=== PATIENT | male | born 1950 | race Caucasian/White ===

== ENCOUNTER 2018-12-10 07:51 | Day surgery (SDC) | payer MEDICARE, BC ==
[~2018-12-10 07:51] MED LIST: Sodium Chloride 0.9% 10 ML Syringe FLUSH PRN
[2018-12-10] MEDS ORDERED: Lidocaine 1% 30 ML SDV INJECT ONE ×5 (07:52→12:21)
[2018-12-10] MEDS ORDERED: Ondansetron 4 MG/2 ML SDV IV ONE (07:52)
[2018-12-10] MEDS ORDERED: fentaNYL 100 MCG/2 ML SDV IV ONE (07:52)
[2018-12-10] MEDS ORDERED: Midazolam 1 MG/ML 2 ML SDV IV ONE (07:52)
[2018-12-10] MEDS ORDERED: Bupivacaine 0.5% 30 ML SDV INJECT ONE ×5 (07:52→12:21)
[2018-12-10] MEDS ORDERED: Lactated Ringers 1,000 ML IV SCH (08:00)
[2018-12-10] MEDS ORDERED: ceFAZolin 1 GM in Premix Bag 1 BAG IV ONE (08:00)
[2018-12-10] MEDS: Sodium Chloride 0.9% 10 ML Syringe FLUSH PRN ×2 (08:13→08:22)
[2018-12-10] MEDS ORDERED: ceFAZolin 2 GM in Premix Bag 1 BAG IV SCH (09:30)
[2018-12-10] MEDS ORDERED: Lidocaine 1% 30 ML SDV ONE (10:37)
[2018-12-10] MEDS ORDERED: Bupivacaine 0.5% 30 ML SDV ONE (10:37)
--- NOTE | 2018-12-10 11:03 | EKG ---
12/10/2018 - [facility] - EKG shows sinus rhythm, leftward axis deviation. No ST elevation or depression. No T-wave inversions. CA interval of 181. QTc of 435. [facility] /[id number]
--- NOTE | 2018-12-10 12:53 | PCM.OPNOTE ---
- General Post-Op/Procedure Note Date of Surgery/Procedure: 12/10/18 Operative Procedure(s): Left foot open plantar fascia release, great toe ingrown nail permanent matrixectomy medial border Pre Op Diagnosis: Left foot plantar fasciitis, ingrown toenail Post-Op Diagnosis: june Anesthesia Technique: Local, MAC Primary Surgeon: Adriana Cantu Anesthesia Provider: Georges Weiner EBL in mLs: 5 Complications: none Condition: Good Free Text/Narrative:: Intake & Output 12/09/18 12/10/18 12/10/18 22:59 06:59 14:59 Intake Total 50 Balance 50 Pt tolerated procedure well and was transported to recovery with vascular status intact to [facility]. Well padded compression dressing applied with cam boot not to be removed with foot in 90 degrees.
[2018-12-10] MEDS ORDERED: Acetaminophen/oxyCODONE 325-5 MG Tab PO PRN (13:00)
[2018-12-10 13:44] VITALS: BP 126/80; PULSE 68
--- NOTE | 2018-12-11 12:16 | OR ---
DATE: 12/10/2018 PREOPERATIVE DIAGNOSIS: 1. Left foot chronic plantar fasciitis. 2. Left foot great toe ingrown toenail, medial border. POSTOPERATIVE DIAGNOSIS: 1. Left foot chronic plantar fasciitis. 2. Left foot great toe ingrown toenail, medial border. PROCEDURE PERFORMED: 1. Left foot open plantar fasciectomy with bone spur excision. 2. Left foot great toe ingrown toenail permanent matrixectomy medial border. ANESTHESIA: Local MAC with preoperative local block of 10 mL 1:1 mixture of 1% lidocaine plain and 0.5% Marcaine plain. TOURNIQUET TIME: 58 minutes, pneumatic ankle tourniquet. ESTIMATED BLOOD LOSS: Minimal. SPECIMEN: None. COMPLICATIONS: None. INDICATIONS: Alistair is a 68-year-old male who presents with chronic left heel pain. This has been going on for over 5 years now and progressively worsening. I have seen him in the past and we tried shoe inserts, injections, stretching and activity modifications with no relief. He also has problems with ingrown toenail, he has had ingrown toenail procedures in the past and would like this removed today during the surgery. His heel pain is worse when he is weightbearing or standing after rest. He did have Achilles problems on that same foot that got fixed in [place] and that has resolved. X-rays of the left foot reveal a cavus foot structure with no signs of fracture, there is a plantar heel spur present. The patient voiced good understanding of the proposed procedure and possible complications, elects to have surgery at this time. DESCRIPTION OF PROCEDURE: The patient was taken to the operating room, lying in supine position. After adequate anesthesia induction as described above, the left foot was prepped and draped in usual sterile fashion. A pneumatic ankle tourniquet was inflated to 225 mmHg. Attention was then directed to the plantar left foot at the distal instep. A transverse skin incision was made in this area to gain access to the plantar fascia band. Sharp and blunt dissection were performed down to the level of the plantar fascia band. There was noted to be severely thickened and tightened in this area. An approximately 1 cm2 section of the plantar fascia band was removed and the plantar fascial band was released. The area was inspected, no further tightness was noted in this area. There was a bursa in this area as well that was incised and removed. The attention was directed to the spur that was palpable in this area. A rongeur and bone rasp were used to remove the spur. Fluoroscopy was used to verify the spur was resected. The area was then irrigated with copious amounts of sterile saline. Deep closure was completed with 3-0 Vicryl and skin closure was completed with 4-0 nylon. Attention was directed to the left great toe where a [place] elevator was used to free the medial great toenail. [place] anvil was used to cut the nail and a [place] blade was used to cut the nail root. The medial nail and nail root was removed and a curette was used to make sure all nail root was removed. Phenol was then applied 3 applications x30 seconds to the nail matrix to kill the nail root. The area was then irrigated with copious amounts of sterile saline. Bacitracin gauze and [place] dressing was applied to the toe. Xeroform, fluffs, Webril, and a compression dressing was applied to the foot. He was placed into a Cam boot at 90 degrees and should not take that off. The patient tolerated the procedure well and was transported to recovery with vital signs stable and vascular status intact as noted by immediate hyperemia to all digits upon deflation of the ankle tourniquet. He was then discharged home once he met hospital discharge requirements. Order placed to [facility] for crutches to be NWB status post foot surgery to left foot. [facility] /[id number] CARLOS ENRIQUE
== END 2018-12-10 13:50 | disposition home or self-care (01) ==
LOC: DL.SDS 07:51
PROVIDERS: ATTEND Podiatrist
DX: M72.2 Plantar fascial fibromatosis (principal); L60.0 Ingrowing nail; I12.9 Hypertensive chronic kidney disease with stage 1 through stage 4 chronic kidney disease, or unspecified chronic kidney disease; N18.3 Chronic kidney disease, stage 3 (moderate); G47.33 Obstructive sleep apnea (adult) (pediatric); E03.9 Hypothyroidism, unspecified; G25.81 Restless legs syndrome; E78.5 Hyperlipidemia, unspecified; Z87.891 Personal history of nicotine dependence; Z79.899 Other long term (current) drug therapy; Z79.890 Hormone replacement therapy; Z99.89 Dependence on other enabling machines and devices
CPT/HCPCS: 01480; 11750; 28060; 93005; J0690; J2001; J2250; J2405; J3010; J3490; J7120

== ENCOUNTER 2019-03-09 21:11 | Emergency (ER) | payer MEDICARE, BC ==
[2019-03-09 21:19] VITALS: BP 97/62
--- NOTE | 2019-03-09 21:29 | EDM.PDOC ---
ED HPI GENERAL MEDICAL PROBLEM - General Chief Complaint: Lower Extremity Injury/Pain Stated Complaint: LEFT ANKLE INJURY Time Seen by Provider: 03/09/19 21:15 Source of Information: Reports: Patient History Limitations: Reports: No Limitations - History of Present Illness INITIAL COMMENTS - FREE TEXT/NARRATIVE: This 68 yo male patient reports to the ED due to left medial ankle pain. The patient reports he passed out at about 1800 this evening. After he came to, he reports feeling a sharp pain in his left medial ankle. The patient reports he has had numerous previous episodes of near syncope, but he normally can hold onto something and not fall. The patient reports he did not hit his head during the incident. The patient reports he is on blood pressure medications which has given him the lightheadedness. Onset: Today Duration: Constant Location: Reports: Lower Extremity, Left, Other Quality: Reports: Ache Severity: Moderate Improves with: Reports: None Worsens with: Reports: None Context: Reports: Other Associated Symptoms: Reports: No Other Symptoms Left Ankle Pain Score (Numeric/FACES): 0 - Related Data Allergies Allergy/AdvReac Type Severity Reaction Status Date / Time hydrochlorothiazide Allergy unknown Verified 03/09/19 21:20 Home Meds: Home Meds Acetaminophen [Tylenol] 325 mg PO .PRN PRN 04/13/16 [History] DULoxetine [Cymbalta] 60 mg PO DAILY 04/13/16 [History] Lisinopril [Prinivil] 40 mg PO BEDTIME 04/13/16 [History] NIFEdipine [Procardia XL] 30 mg PO BEDTIME 04/13/16 [History] Omeprazole 20 mg PO DAILY 04/13/16 [History] Simvastatin 40 mg PO BEDTIME 04/13/16 [History] Zolpidem Tartrate [Ambien] 10 mg PO BEDTIME 04/13/16 [History] rOPINIRole HCl [Ropinirole ER] 4 mg PO BID 04/13/16 [History] amLODIPine Besylate [Amlodipine Besylate] 5 mg PO BEDTIME 11/19/18 [History] traMADol [Ultram] 50 mg PO .PRN PRN 11/19/18 [History] Fenofibrate 160 mg PO BEDTIME 12/07/18 [History] Labetalol HCl [Labetalol] 200 mg PO BEDTIME 12/07/18 [History] Levothyroxine [Synthroid] 50 mcg PO ACBREAKFAST 12/07/18 [History] Past Medical History HEENT History: Reports: Impaired Vision Other HEENT History: LOWER PARTIAL. UPPER PERMANENTLY FIXED Cardiovascular History: Reports: Aneurysm, High Cholesterol, Hypertension, Other (See Below) Other Cardiovascular History: Abdominal Aortic Aneurysm, non repaired Respiratory History: Reports: Sleep Apnea Gastrointestinal History: Reports: GERD, Other (See Below) Other Gastrointestinal History: fatty liver Genitourinary History: Reports: Renal Disease, Other (See Below) Other Genitourinary History: kidney problems when septic at one time. Stage III chronic kidney disease Musculoskeletal History: Reports: Arthritis, Fibromyalgia, Other (See Below) Other Musculoskeletal History: Hx of septic arthritis. Knee pain, arthritis of knee, degenerative. Infected prosthetic knee Neurological History: Reports: Other (See Below) Other Neuro History: restless leg syndrome. neuropathic pain Psychiatric History: Reports: Depression Endocrine/Metabolic History: Reports: Hypothyroidism Hematologic History: Reports: Anemia Immunologic History: Reports: None Oncologic (Cancer) History: Reports: None Dermatologic History: Reports: Psoriasis, Other (See Below) Other Dermatologic History: skin lesion excision - Infectious Disease History Infectious Disease History: Reports: MRSA - Past Surgical History HEENT Surgical History: Reports: Other (See Below) Other HEENT Surgeries/Procedures: Nose surgery Cardiovascular Surgical History: Reports: None GI Surgical History: Reports: Colonoscopy, Hernia Repair/Other Male Surgical History: Reports: TURP-Transurethral Resection of Prostate Musculoskeletal Surgical History: Reports: Knee Replacement, Other (See Below) Other Musculoskeletal Surgeries/Procedures:: Foot heel achilles tendon repair . Knee surgery. Joint replacement Social & Family History - Family History Family Medical History: Noncontributory - Tobacco Use Smoking Status *Q: Never Smoker - Caffeine Use Caffeine Use: Reports: Coffee Caffeine Use Comment: 16. oz daily - Recreational Drug Use Recreational Drug Use: No - Living Situation & Occupation Living situation: Reports: , with Family Review of Systems - Review of Systems Review Of Systems: ROS reveals no pertinent complaints other than HPI. ED EXAM, GENERAL - Physical Exam Exam: See Below Exam Limited By: No Limitations General Appearance: Alert, WD/WN, No Apparent Distress Eye Exam: Bilateral Eye: EOMI, Normal Inspection, PERRL Ears: Normal External Exam, Normal Canal, Hearing Grossly Normal, Normal TMs Nose: Normal Inspection, Normal Mucosa, No Blood Throat/Mouth: Normal Inspection, Normal Lips, Normal Teeth, Normal Gums, Normal Oropharynx, Normal Voice, No Airway Compromise Head: Atraumatic, Normocephalic Neck: Normal Inspection, Supple, Non-Tender, Full Range of Motion Respiratory/Chest: No Respiratory Distress, Lungs Clear, Normal Breath Sounds, No Accessory Muscle Use, Chest Non-Tender Cardiovascular: Normal Peripheral Pulses, Regular Rate, Rhythm, No Edema, No Gallop, No JVD, No Murmur, No Rub GI/Abdominal: Normal Bowel Sounds, Soft, Non-Tender, No Organomegaly, No Distention, No Abnormal Bruit, No Mass (Male) Exam: Deferred Rectal (Males) Exam: Deferred Back Exam: Normal Inspection, Full Range of Motion, NT Extremities: Leg Pain (left medial ankle pain) Neurological: Alert, Oriented, CN II-XII Intact, Normal Cognition, Normal Gait, Normal Reflexes, No Motor/Sensory Deficits Psychiatric: Normal Affect, Normal Mood Skin Exam: Warm, Dry, Intact, Normal Color, No Rash Lymphatic: No Adenopathy Course - Vital Signs Last Recorded V/S: Last Vital Signs Temp 36.1 C 03/09/19 21:14 Pulse 83 03/09/19 21:14 Resp 18 03/09/19 21:14 BP 97/62 03/09/19 21:14 Pulse Ox 97 03/09/19 21:14 - Orders/Labs/Meds Orders: Active Orders 24 hr Category Date Time Status EKG Documentation Completion [RC] URGENT Care 03/09/19 21:22 Ordered Ankle Min 3V Lt [CR] Urgent Exams 03/09/19 21:22 Ordered Chest 1V Frontal [CR] Urgent Exams 03/09/19 21:22 Ordered DME for Discharge [COMM] Urgent Oth 03/09/19 22:16 Ordered Labs: Laboratory Tests 03/09/19 03/09/19 Range/Units 21:24 21:24 WBC 7.4 (5.0-10.0) 10^3/uL RBC 4.44 L (4.6-6.2) 10^6/uL Hgb 13.9 L (14.0-18.0) g/dL Hct 42.0 (40.0-54.0) % MCV 94.6 (80-100) fL MCH 31.3 (27.0-34.0) pg MCHC 33.1 (33.0-35.0) g/dL Plt Count 314 (150-450) 10^3/uL Neut % (Auto) 60.8 (42.2-75.2) % Lymph % (Auto) 25.4 (20.5-50.1) % [place] % (Auto) 10.8 H (2-8) % Eos % (Auto) 2.3 (1.0-3.0) % Baso % (Auto) 0.7 (0.0-1.0) % Sodium 139 (135-145) mmol/L Potassium 4.7 (3.6-5.0) mmol/L Chloride 104 (101-111) mmol/L Carbon Dioxide 22.0 (21.0-31.0) mmol/L Anion Gap 17.7 BUN 67 H (7-18) mg/dL Creatinine 3.7 H D (0.6-1.3) mg/dL Est Cr Clr Drug Dosing 19.79 mL/min Estimated GFR (MDRD) 16 BUN/Creatinine Ratio 18.10 Glucose 122 H (74-105) mg/dL Calcium 8.7 (8.4-10.2) mg/dl Total Bilirubin 0.8 (0.2-1.0) mg/dL AST 21 (10-42) IU/L ALT 20 (10-60) IU/L Alkaline Phosphatase 43 (42-121) IU/L Troponin I < 0.02 (0.00-0.02) ng/ml Total Protein 6.7 (6.7-8.2) g/dl Albumin 4.2 (3.2-5.5) g/dl Globulin 2.5 Albumin/Globulin Ratio 1.68 Departure - Departure Time of Disposition: 22:17 Disposition: Home, Self-Care 01 Condition: Fair Clinical Impression: Fractured medial malleolus Qualifiers: Encounter type: initial encounter Fracture type: closed Fracture alignment: displaced Laterality: left Qualified Code(s): S82.52XA - Displaced fracture of medial malleolus of left tibia, initial encounter for closed fracture - Discharge Information *PRESCRIPTION DRUG MONITORING PROGRAM REVIEWED*: Not Applicable *COPY OF PRESCRIPTION DRUG MONITORING REPORT IN PATIENT RANDELL: Not Applicable Instructions: Cast or Splint Care, Adult, [id number], Tibial Fracture, Adult , [id number] Forms: ED Department Discharge Care Plan Goals: The patient was advised of the examination, lab, x-ray and EKG results during the visit. The patient was placed in a walking boot to stabilize his ankle. The patient was encouraged to rest, ice and elevate the left ankle. The patient should follow-up with his primary care facility for continued evaluation and further management. The patient was also encouraged to address his elevated kidney function lab results with his primary care facility for continued evaluation. If the patient has any additional symptoms or concerns, the patient should either return to the emergency department or visit his primary care facility. - My Orders Last 24 Hours: My Active Orders 03/09/19 21:22 EKG Documentation Completion [RC] URGENT Ankle Min 3V Lt [CR] Urgent Chest 1V Frontal [CR] Urgent 03/09/19 22:16 DME for Discharge [COMM] Urgent - Assessment/Plan Last 24 Hours: My Active Orders 03/09/19 21:22 EKG Documentation Completion [RC] URGENT Ankle Min 3V Lt [CR] Urgent Chest 1V Frontal [CR] Urgent 03/09/19 22:16 DME for Discharge [COMM] Urgent
[2019-03-09 21:48] LABS: ANION GAP 17.7; CHLORIDE,CL 104 mmol/L (101-111); SODIUM,NA 139 mmol/L (135-145)
== END 2019-03-09 22:30 | disposition home or self-care (01) ==
LOC: DL.ED 21:11
DX: S82.52XA Displaced fracture of medial malleolus of left tibia, initial encounter for closed fracture (principal); I10 Essential (primary) hypertension; E78.00 Pure hypercholesterolemia, unspecified; F32.9 Major depressive disorder, single episode, unspecified; E03.9 Hypothyroidism, unspecified; Z79.899 Other long term (current) drug therapy; Z88.8 Allergy status to other drugs, medicaments and biological substances; W19.XXXA Unspecified fall, initial encounter
CPT/HCPCS: 36415; 71045; 73610-LT; 80053; 84484; 85025; 93005; 99284-25

== ENCOUNTER 2019-05-13 09:14 | Emergency (ER) | payer MEDICARE, BC ==
[2019-05-13] MEDS ORDERED: Sodium Chloride 0.9% 10 ML Syringe FLUSH PRN (09:19)
--- NOTE | 2019-05-13 09:19 | EDM.PDOC ---
ED HPI GENERAL MEDICAL PROBLEM - General Chief Complaint: Chest Pain Stated Complaint: CHEST PAIN Time Seen by Provider: 05/13/19 09:19 Source of Information: Reports: Patient, Old Records, RN, RN Notes Reviewed History Limitations: Reports: No Limitations - History of Present Illness INITIAL COMMENTS - FREE TEXT/NARRATIVE: Pt presents to ER from home by POV with c/o sudden onset of chest pain/pressure at approx. 0830HRS this morning while at rest. Pt states he felt well prior to onset of the chest pain, and felt completely well yesterday. Pt reports mid- chest pressure with nausea. Denies shortness of breath, radiating pain, edema, lightheadedness, syncope, palpitations, or orthopnea. Pt states he checked his BP after the pain began and it was higher than usual (he doesn't remember the exact numbers) so he decided he had better come to the ER to see if he was having a heart attack. Pt does report that he has been having problems with acid reflux recently and he wondered if is chest symptoms were caused by acid, but because of the higher than normal BP he thought he should be checked out. Onset: Today, Sudden Onset Date: 05/13/19 Onset Time: 08:30 Duration: Constant Location: Reports: Chest Quality: Reports: Pressure Severity: Moderate Improves with: Reports: None Worsens with: Reports: None - Related Data Allergies Allergy/AdvReac Type Severity Reaction Status Date / Time hydrochlorothiazide Allergy unknown Verified 03/09/19 21:20 Home Meds: Home Meds Acetaminophen [Tylenol] 325 mg PO .PRN PRN 04/13/16 [History] DULoxetine [Cymbalta] 60 mg PO DAILY 04/13/16 [History] Lisinopril [Prinivil] 40 mg PO BEDTIME 04/13/16 [History] NIFEdipine [Procardia XL] 30 mg PO BEDTIME 04/13/16 [History] Omeprazole 20 mg PO DAILY 04/13/16 [History] Simvastatin 40 mg PO BEDTIME 04/13/16 [History] Zolpidem Tartrate [Ambien] 10 mg PO BEDTIME 04/13/16 [History] rOPINIRole HCl [Ropinirole ER] 4 mg PO BID 04/13/16 [History] amLODIPine Besylate [Amlodipine Besylate] 5 mg PO BEDTIME 11/19/18 [History] traMADol [Ultram] 25 mg PO .PRN PRN 11/19/18 [History] Fenofibrate 160 mg PO BEDTIME 12/07/18 [History] Labetalol HCl [Labetalol] 200 mg PO BEDTIME 12/07/18 [History] Levothyroxine [Synthroid] 50 mcg PO ACBREAKFAST 12/07/18 [History] Past Medical History HEENT History: Reports: Impaired Vision Other HEENT History: LOWER PARTIAL. UPPER PERMANENTLY FIXED Cardiovascular History: Reports: Aneurysm, High Cholesterol, Hypertension, Other (See Below) Other Cardiovascular History: Abdominal Aortic Aneurysm, non repaired Respiratory History: Reports: Sleep Apnea Gastrointestinal History: Reports: GERD, Other (See Below) Other Gastrointestinal History: fatty liver Genitourinary History: Reports: Renal Disease, Other (See Below) Other Genitourinary History: kidney problems when septic at one time. Stage III chronic kidney disease Musculoskeletal History: Reports: Arthritis, Fibromyalgia, Other (See Below) Other Musculoskeletal History: Hx of septic arthritis. Knee pain, arthritis of knee, degenerative. Infected prosthetic knee Neurological History: Reports: Other (See Below) Other Neuro History: restless leg syndrome. neuropathic pain Psychiatric History: Reports: Depression Endocrine/Metabolic History: Reports: Hypothyroidism Hematologic History: Reports: Anemia Immunologic History: Reports: None Oncologic (Cancer) History: Reports: None Dermatologic History: Reports: Psoriasis, Other (See Below) Other Dermatologic History: skin lesion excision - Infectious Disease History Infectious Disease History: Reports: MRSA - Past Surgical History HEENT Surgical History: Reports: Other (See Below) Other HEENT Surgeries/Procedures: Nose surgery Cardiovascular Surgical History: Reports: None GI Surgical History: Reports: Colonoscopy, Hernia Repair/Other Male Surgical History: Reports: TURP-Transurethral Resection of Prostate Musculoskeletal Surgical History: Reports: Knee Replacement, Other (See Below) Other Musculoskeletal Surgeries/Procedures:: Foot heel achilles tendon repair . Knee surgery. Joint replacement Social & Family History - Family History Family Medical History: Noncontributory - Caffeine Use Caffeine Use: Reports: Coffee Caffeine Use Comment: 16. oz daily - Living Situation & Occupation Living situation: Reports: , with Family Occupation: Retired ED ROS GENERAL - Review of Systems Review Of Systems: ROS reveals no pertinent complaints other than HPI. ED EXAM, GENERAL - Physical Exam Exam: See Below Exam Limited By: No Limitations General Appearance: Alert, WD/WN, No Apparent Distress Eye Exam: Bilateral Eye: Normal Inspection Nose: Normal Inspection, No Blood Throat/Mouth: Normal Inspection, Normal Lips, Normal Voice, No Airway Compromise Head: Atraumatic, Normocephalic Neck: Normal Inspection, Supple, Non-Tender, Full Range of Motion Respiratory/Chest: No Respiratory Distress, Lungs Clear, Normal Breath Sounds, No Accessory Muscle Use, Chest Non-Tender Cardiovascular: Normal Peripheral Pulses, Regular Rate, Rhythm, No Edema, No Gallop, No JVD, No Murmur, No Rub GI/Abdominal: Normal Bowel Sounds, Soft, Non-Tender, No Distention, No Abnormal Bruit, No Mass. No: Guarding, Rigid, Rebound Back Exam: Normal Inspection Extremities: Normal Inspection, Normal Range of Motion, Non-Tender, Normal Capillary Refill, No Pedal Edema Neurological: Alert, Oriented, CN II-XII Intact, Normal Cognition, Normal Gait, No Motor/Sensory Deficits Psychiatric: Normal Affect, Normal Mood Skin Exam: Warm, Dry, Intact, Normal Color, No Rash EKG INTERPRETATION EKG Date: 05/13/19 Time: 09:22 Rhythm: NSR Rate (Beats/Min): [address] [place]: Normal P-Wave: Present QRS: Normal ST-T: Normal QT: Normal Comparison: NA - No Prior EKG EKG Interpretation Comments: No acute ischemic changes. No changes compared to EKG dated 03/09/19. Course - Vital Signs Last Recorded V/S: Last Vital Signs Temp 97.8 F 05/13/19 09:18 Pulse 85 05/13/19 09:18 Resp 18 05/13/19 09:18 BP 177/88 H 05/13/19 09:18 Pulse Ox 97 05/13/19 09:18 - Orders/Labs/Meds Orders: Active Orders 24 hr Category Date Time Status EKG 12 Lead [EKG Documentation Completion] [RC] STAT Care 05/13/19 09:19 Active Peripheral IV Care [RC] . DIRECTED Care 05/13/19 09:20 Active Chest 1V Frontal [CR] Stat Exams 05/13/19 09:20 Taken Nitroglycerin [Nitrostat] Med 05/13/19 09:22 Active 0.4 mg SL Q5M PRN Sodium Chloride 0.9% [Saline Flush] Med 05/13/19 09:19 Active 10 ml FLUSH ASDIRECTED PRN Peripheral IV Insertion Adult [OM.PC] Stat Oth 05/13/19 09:19 Ordered Medication Orders Nitroglycerin (Nitrostat) 0.4 mg SL Q5M PRN PRN Reason: Chest Pain Sodium Chloride (Saline Flush) 10 ml FLUSH ASDIRECTED PRN PRN Reason: Keep Vein Open Last Admin: 05/13/19 09:41 Dose: 10 ml Labs: Laboratory Tests 05/13/19 05/13/19 05/13/19 Range/Units 09:20 09:20 09:20 WBC 6.1 (5.0-10.0) 10^3/uL RBC 4.87 (4.6-6.2) 10^6/uL Hgb 15.1 (14.0-18.0) g/dL Hct 45.0 (40.0-54.0) % MCV 92.4 (80-100) fL MCH 31.0 (27.0-34.0) pg MCHC 33.6 (33.0-35.0) g/dL Plt Count 225 D (150-450) 10^3/uL Neut % (Auto) 65.9 (42.2-75.2) % Lymph % (Auto) 21.7 (20.5-50.1) % [place] % (Auto) 8.8 H (2-8) % Eos % (Auto) 3.1 H (1.0-3.0) % Baso % (Auto) 0.5 (0.0-1.0) % PT 9.8 (9.0-12.0) SEC INR 1.0 (0.9-1.2) APTT 26.0 (22.0-34.0) SEC Sodium 140 (135-145) mmol/L Potassium 3.8 (3.6-5.0) mmol/L Chloride 105 (101-111) mmol/L Carbon Dioxide 23.0 (21.0-31.0) mmol/L Anion Gap 15.8 BUN 24 H D (7-18) mg/dL Creatinine 1.3 D (0.6-1.3) mg/dL Est Cr Clr Drug Dosing 56.31 mL/min Estimated GFR (MDRD) 55 BUN/Creatinine Ratio 18.46 Glucose 121 H (74-105) mg/dL Calcium 9.4 (8.4-10.2) mg/dl Total Bilirubin 1.3 H (0.2-1.0) mg/dL AST 23 (10-42) IU/L ALT 24 (10-60) IU/L Alkaline Phosphatase 60 (42-121) IU/L Troponin I < 0.02 (0.00-0.02) ng/ml B-Natriuretic Peptide 20 (0-100) pg/ml Total Protein 7.2 (6.7-8.2) g/dl Albumin 4.5 (3.2-5.5) g/dl Globulin 2.7 Albumin/Globulin Ratio 1.67 Lipase 38 (22-51) U/L Meds: Medications Generic Name Dose Route Start Last Admin Trade Name Freq PRN Reason Stop Dose Admin Nitroglycerin 0.4 mg 05/13/19 09:22 Nitrostat SL Q5M PRN Chest Pain Sodium Chloride 10 ml 05/13/19 09:19 05/13/19 09:41 Saline Flush FLUSH 10 ml ASDIRECTED PRN Administration Keep Vein Open Discontinued Medications Generic Name Dose Route Start Last Admin Trade Name Freq PRN Reason Stop Dose Admin Aspirin 324 mg 05/13/19 09:22 05/13/19 09:39 Aspirin PO 05/13/19 09:23 324 mg ONETIME ONE Administration Ondansetron HCl 4 mg 05/13/19 09:22 05/13/19 09:40 Zofran IV 05/13/19 09:23 4 mg ONETIME ONE Administration - Radiology Interpretation Free Text/Narrative:: [facility] Final Radiology Report Call: [phone] assistance Online chat: [email or web address] Name: LAMONT EID Age: 68Years M Date: 05/13/2019 SSN: -- : [id number] Study: XR CHEST 1 VIEW FRONTAL Requesting Physician: HARMONY YU Images: 1 Addl Studies: Provided Clinical History: Contrast: Contrast Medium: Contrast Amount: Contrast Method: CONFIDENTIALITY STATEMENT This report is intended only for use by the referring physician, and only in accordance with law. If you received this in error, call [phone]. Page 1 of 1 EXAM: XR Chest, 1 View EXAM DATE/TIME: 05/13/2019 9:46 AM CLINICAL HISTORY: 68 years old, male; Chest pain; Type not specified TECHNIQUE: Imaging protocol: XR of the chest Views: 1 view. COMPARISON: CR Chest 1V Frontal 03/09/2019 9:32 PM FINDINGS: Lungs: Unremarkable. No consolidation. Pleural space: Unremarkable. No pleural effusion. No pneumothorax. Heart/Mediastinum: Unremarkable. No cardiomegaly. Bones/joints: Unremarkable. IMPRESSION: No acute findings. Thank you for allowing us to participate in the care of your patient. Dictated and Authenticated by: Jovan Mendoza MD 05/13/2019 9:55 AM Central Time ([place] & [place]) - Re-Assessments/Exams Free Text/Narrative Re-Assessment/Exam: 05/13/19 10:01 I explained the exam findings, results of all diagnostic tests, working diagnosis, and any potential or additionally considered diagnoses, treatment/ disposition plan, self/home care instructions, rational for the diagnosis/ treatment plan/disposition plan, anticipated course of illness, and follow up instructions to the pt. The pt acknowledges understanding of the above explanation(s), and of the signs and symptoms which should prompt the return of the pt to the ER should those or any other concerning symptoms develop. Departure - Departure Time of Disposition: 10:07 Disposition: Home, Self-Care 01 Condition: Good Clinical Impression: Atypical chest pain Gastroesophageal reflux disease Qualifiers: Esophagitis presence: with esophagitis Qualified Code(s): K21.0 - Gastro- esophageal reflux disease with esophagitis Instructions: Nonspecific Chest Pain, Food Choices for Gastroesophageal Reflux Disease, Adult Forms: ED Department Discharge Additional Instructions: [place] diet until feeling improved. Continue previous Omeprazole dose for up to one week. Follow up in clinic with your primary doctor for recheck. - My Orders Last 24 Hours: My Active Orders 05/13/19 09:19 EKG 12 Lead [EKG Documentation Completion] [RC] STAT Sodium Chloride 0.9% [Saline Flush] 10 ml FLUSH ASDIRECTED PRN Peripheral IV Insertion Adult [OM.PC] Stat 05/13/19 09:20 Peripheral IV Care [RC] . DIRECTED Chest 1V Frontal [CR] Stat 05/13/19 09:22 Nitroglycerin [Nitrostat] 0.4 mg SL Q5M PRN - Assessment/Plan Last 24 Hours: My Active Orders 05/13/19 09:19 EKG 12 Lead [EKG Documentation Completion] [RC] STAT Sodium Chloride 0.9% [Saline Flush] 10 ml FLUSH ASDIRECTED PRN Peripheral IV Insertion Adult [OM.PC] Stat 05/13/19 09:20 Peripheral IV Care [RC] . DIRECTED Chest 1V Frontal [CR] Stat 05/13/19 09:22 Nitroglycerin [Nitrostat] 0.4 mg SL Q5M PRN
[2019-05-13] MEDS ORDERED: Aspirin 81 MG Tab.Chew PO ONE (09:22)
[2019-05-13] MEDS ORDERED: Ondansetron 4 MG/2 ML SDV IV ONE (09:22)
[2019-05-13] MEDS ORDERED: Nitroglycerin 0.4 MG Tab.SL SL PRN (09:22)
[2019-05-13 09:35] VITALS: BP 177/88
[2019-05-13 09:47] LABS: ANION GAP 15.8; CHLORIDE,CL 105 mmol/L (101-111); SODIUM,NA 140 mmol/L (135-145)
== END 2019-05-13 10:20 | disposition home or self-care (01) ==
LOC: DL.ED 09:14
DX: K21.0 Gastro-esophageal reflux disease with esophagitis (principal); R07.89 Other chest pain; I12.9 Hypertensive chronic kidney disease with stage 1 through stage 4 chronic kidney disease, or unspecified chronic kidney disease; N18.3 Chronic kidney disease, stage 3 (moderate); D63.1 Anemia in chronic kidney disease; E03.9 Hypothyroidism, unspecified; E78.00 Pure hypercholesterolemia, unspecified; Z88.8 Allergy status to other drugs, medicaments and biological substances; Z79.899 Other long term (current) drug therapy
CPT/HCPCS: 36415; 71045; 80053; 83690; 83880; 84484; 85025; 85610; 85730; 93005; 96374; 99285; A9270; J2405

== ENCOUNTER 2019-06-11 15:52 | Emergency (ER) | payer MEDICARE, BC ==
[2019-06-11 16:55] VITALS: BP 145/93; PULSE 90
[2019-06-11] MEDS ORDERED: Lidocaine 1% 30 ML SDV INJECT ONE (16:55)
[2019-06-11] MEDS ORDERED: Diphtheria,Pertussis(Acell),Tetanus Vaccine 0.5 ML SDV IM ONE (16:55)
[2019-06-11] MEDS ORDERED: Bacitracin Oint 1 GM U/D Packet TOP ONE (16:55)
--- NOTE | 2019-06-11 17:48 | EDM.PDOC ---
Scribed by Chelsy Jo 06/11/19 0944 for Nathan Davila MD ED HPI GENERAL MEDICAL PROBLEM - General Chief Complaint: Laceration Stated Complaint: LACERATION LEFT HAND Time Seen by Provider: 06/11/19 16:56 Source of Information: Reports: Patient, RN Notes Reviewed History Limitations: Reports: No Limitations - History of Present Illness INITIAL COMMENTS - FREE TEXT/NARRATIVE: Patient presents to ER after cutting his left index finger while cleaning a duck. This happened about 1530. Not up to date on tetanus. Denied any other injury. Onset: Today Duration: Constant Location: Reports: Upper Extremity, Left Quality: Reports: Ache Severity: Moderate Improves with: Reports: None Worsens with: Reports: None Associated Symptoms: Reports: No Other Symptoms Left Finger-Index Pain Score (Numeric/FACES): 6 - Related Data Allergies Allergy/AdvReac Type Severity Reaction Status Date / Time hydrochlorothiazide Allergy unknown Verified 03/09/19 21:20 Home Meds: Home Meds Acetaminophen [Tylenol] 325 mg PO .PRN PRN 04/13/16 [History] DULoxetine [Cymbalta] 60 mg PO DAILY 04/13/16 [History] Lisinopril [Prinivil] 40 mg PO BEDTIME 04/13/16 [History] NIFEdipine [Procardia XL] 30 mg PO BEDTIME 04/13/16 [History] Omeprazole 20 mg PO DAILY 04/13/16 [History] Simvastatin 40 mg PO BEDTIME 04/13/16 [History] Zolpidem Tartrate [Ambien] 10 mg PO BEDTIME 04/13/16 [History] rOPINIRole HCl [Ropinirole ER] 4 mg PO BID 04/13/16 [History] amLODIPine Besylate [Amlodipine Besylate] 5 mg PO BEDTIME 11/19/18 [History] traMADol [Ultram] 25 mg PO .PRN PRN 11/19/18 [History] Fenofibrate 160 mg PO BEDTIME 12/07/18 [History] Labetalol HCl [Labetalol] 200 mg PO BEDTIME 12/07/18 [History] Levothyroxine [Synthroid] 50 mcg PO ACBREAKFAST 12/07/18 [History] Past Medical History HEENT History: Reports: Impaired Vision Other HEENT History: LOWER PARTIAL. UPPER PERMANENTLY FIXED Cardiovascular History: Reports: Aneurysm, High Cholesterol, Hypertension, Other (See Below) Other Cardiovascular History: Abdominal Aortic Aneurysm, non repaired Respiratory History: Reports: Sleep Apnea Gastrointestinal History: Reports: GERD, Other (See Below) Other Gastrointestinal History: fatty liver Genitourinary History: Reports: Renal Disease, Other (See Below) Other Genitourinary History: kidney problems when septic at one time. Stage III chronic kidney disease Musculoskeletal History: Reports: Arthritis, Fibromyalgia, Other (See Below) Other Musculoskeletal History: Hx of septic arthritis. Knee pain, arthritis of knee, degenerative. Infected prosthetic knee Neurological History: Reports: Other (See Below) Other Neuro History: restless leg syndrome. neuropathic pain Psychiatric History: Reports: Depression Endocrine/Metabolic History: Reports: Hypothyroidism Hematologic History: Reports: Anemia Immunologic History: Reports: None Oncologic (Cancer) History: Reports: None Dermatologic History: Reports: Psoriasis, Other (See Below) Other Dermatologic History: skin lesion excision - Infectious Disease History Infectious Disease History: Reports: MRSA - Past Surgical History HEENT Surgical History: Reports: Other (See Below) Other HEENT Surgeries/Procedures: Nose surgery Cardiovascular Surgical History: Reports: None GI Surgical History: Reports: Colonoscopy, Hernia Repair/Other Male Surgical History: Reports: TURP-Transurethral Resection of Prostate Musculoskeletal Surgical History: Reports: Knee Replacement, Other (See Below) Other Musculoskeletal Surgeries/Procedures:: Foot heel achilles tendon repair . Knee surgery. Joint replacement Social & Family History - Family History Family Medical History: Noncontributory - Caffeine Use Caffeine Use: Reports: Coffee Caffeine Use Comment: 16. oz daily - Living Situation & Occupation Living situation: Reports: , with Spouse Occupation: Retired Review of Systems - Review of Systems Review Of Systems: ROS reveals no pertinent complaints other than HPI. ED EXAM, GENERAL - Physical Exam Exam: See Below Exam Limited By: No Limitations General Appearance: Alert, WD/WN, No Apparent Distress Head: Atraumatic, Normocephalic Respiratory/Chest: No Respiratory Distress Cardiovascular: Normal Peripheral Pulses Extremities: Normal Range of Motion, Normal Capillary Refill, Other (Left index finger with a "V" shaped deep flap laceration 5cm in total length to depth of subcutaneous tissue, no FB, no active bleeding, no tendon injury.) Neurological: Alert, Oriented, Normal Cognition, Normal Gait, No Motor/Sensory Deficits Psychiatric: Normal Affect, Normal Mood ED TRAUMA EXTREMITY PROCEDURES - Laceration/Wound Repair Left Digit - 2nd (Index) Lac/Wound Length In cm: 5 Appearance: Subcutaneous, Irregular, Clean Distal NVT: Neuro & Vascular Intact, No Tendon Injury Anesthetic Type: Digital Local Anesthesia - Lidocaine (Xylocaine): 1% Plain Local Anesthetic Volume: 5cc Skin Prep: Chlorhexidine (Hibiciens), Saline, Sterile Drape Saline Irrigation (cc's): 500 Exploration/Debridement/Repair: Wound Explored, In a Bloodless Field, Explored to Base, Minimal Debridement, Minimally Undermined Closed With: Sutures Suture Size: 3-0 # of Sutures: 13 Suture Type: Nylon, Interrupted Drain Placement: No Sterile Dressing Applied: Nurse Tetanus Status Addressed: Yes Complications: No Course - Vital Signs Last Recorded V/S: Last Vital Signs Temp 98.5 F 06/11/19 16:48 Pulse 90 06/11/19 16:48 Resp 16 06/11/19 16:48 BP 145/93 H 06/11/19 16:48 Pulse Ox 95 06/11/19 16:48 - Orders/Labs/Meds Orders: Active Orders 24 hr Category Date Time Status Vaccines to be Administered [RC] PER UNIT ROUTINE Care 06/11/19 16:55 Active Meds: Medications Discontinued Medications Generic Name Dose Route Start Last Admin Trade Name Freq PRN Reason Stop Dose Admin Bacitracin 1 dose 06/11/19 16:55 06/11/19 17:02 Bacitracin Oint 1 Gm TOP 06/11/19 16:56 1 dose ONETIME ONE Administration Diphtheria/Tetanus/Acell Pertussis 0.5 ml 06/11/19 16:55 06/11/19 17:03 Adacel IM 06/11/19 16:56 0.5 ml .ONCE ONE Administration Lidocaine HCl 30 ml 06/11/19 16:55 06/11/19 17:03 Xylocaine-Mpf 1% INJECT 06/11/19 16:56 30 ml ONETIME ONE Administration Departure - Departure Time of Disposition: 17:48 Disposition: Home, Self-Care 01 Condition: Good Clinical Impression: Laceration of index finger of left hand without complication Qualifiers: Encounter type: initial encounter Qualified Code(s): S61.211A - Laceration without foreign body of left index finger without damage to nail, initial encounter - Discharge Information *PRESCRIPTION DRUG MONITORING PROGRAM REVIEWED*: No *COPY OF PRESCRIPTION DRUG MONITORING REPORT IN PATIENT RANDELL: No Instructions: Laceration Care, Adult Forms: ED Department Discharge Additional Instructions: Follow up in clinic for suture removal in 9 to 10 days. Follow up in clinic or return to ER if any signs of wound infection develop. - My Orders Last 24 Hours: My Active Orders 06/11/19 16:55 Vaccines to be Administered [RC] PER UNIT ROUTINE - Assessment/Plan Last 24 Hours: My Active Orders 06/11/19 16:55 Vaccines to be Administered [RC] PER UNIT ROUTINE I have read and agree with the documentation that has been completed regarding this visit. By signing this record, I attest that the documentation was completed in my physical presence and is an accurate record of the encounter.
== END 2019-06-11 18:10 | disposition home or self-care (01) ==
LOC: DL.ED 15:52
DX: S61.211A Laceration without foreign body of left index finger without damage to nail, initial encounter (principal); E78.00 Pure hypercholesterolemia, unspecified; I10 Essential (primary) hypertension; Z23 Encounter for immunization; Z88.8 Allergy status to other drugs, medicaments and biological substances
CPT/HCPCS: 12001; 12002; 90471; 90715; 99282; J2001; 96372

== ENCOUNTER 2020-02-17 18:07 | Emergency (ER) | payer MEDICARE, BC | END 2020-02-17 18:47 | disposition left against medical advice (07) | LOC: DL.ED 18:07 | DX: Z53.21 Procedure and treatment not carried out due to patient leaving prior to being seen by health care provider (principal) ==